=== PATIENT | male | born 1970 | race Caucasian/White ===

== ENCOUNTER 2017-05-12 08:52 | Inpatient (IN) | payer OTHER ==
[2017-05-12] MEDS ORDERED: Dexamethasone IV* 4 MG/ML 1 ML (4 MG) IV SLOW PU SCH (10:00)
[2017-05-12] MEDS ORDERED: Fosaprepitant IV* 150 MG in NS 0.9% 250 ML* 145 ML IVPB ONE (10:00)
[2017-05-12] MEDS ORDERED: Palonosetron* 0.25 MG in PREMIX* 0 ML IVPB ONE (10:30)
[2017-05-12] MEDS: OLANzapine TAB* 10 MG PO SCH (10:54)
[2017-05-12] MEDS: Enoxaparin(*) 40 MG/0.4 ML SYR SUBCUT SCH (11:45)
[2017-05-12] MEDS: MESNA IVPB SCH (12:06)
[2017-05-12] MEDS: DOXORUBICIN IVPB SCH (12:06)
[2017-05-12] MEDS: NS 0.9% IVPB SCH ×2 (12:06)
[2017-05-12] MEDS: DACARBAZINE IVPB SCH (12:06)
[2017-05-12] MEDS: IFOSFAMIDE IVPB SCH (12:06)
[2017-05-12] MEDS ORDERED: LORazepam INJ* 2 MG/ML 1 ML VIAL IV PUSH PRN (13:56)
[2017-05-12] MEDS: HYDROcodone/ACET. 7.5/325 LIQ* 15 ML UDC PO PRN (14:35)
[2017-05-12] MEDS: metFORMIN* 500 MG TAB PO SCH ×2 (14:37→17:50)
[2017-05-12] MEDS: glyBURIDE TAB* 5 MG PO SCH (17:44)
[2017-05-13] MEDS: metFORMIN* 500 MG TAB PO SCH ×2 (08:33→17:11)
[2017-05-13] MEDS: glyBURIDE TAB* 5 MG PO SCH ×2 (08:33→17:11)
[2017-05-13] MEDS: SitaGLIPtin (NF) 25 MG TAB PO SCH (08:33)
[2017-05-13] MEDS ORDERED: METFORMIN PO SCH (09:00)
[2017-05-13] MEDS ORDERED: SITAGLIPTIN PO SCH (09:00)
[2017-05-13] MEDS: Enoxaparin(*) 40 MG/0.4 ML SYR SUBCUT SCH (10:29)
[2017-05-13] MEDS: OLANzapine TAB* 10 MG PO SCH (10:29)
[2017-05-13] MEDS: Dexamethasone IV* 4 MG/ML 1 ML (4 MG) IV SLOW PU SCH (10:29)
[2017-05-13] MEDS: IFOSFAMIDE IVPB SCH (11:44)
[2017-05-13] MEDS: MESNA IVPB SCH (11:44)
[2017-05-13] MEDS: NS 0.9% IVPB SCH ×2 (11:44→11:45)
[2017-05-13] MEDS: DACARBAZINE IVPB SCH (11:45)
[2017-05-13] MEDS: DOXORUBICIN IVPB SCH (11:45)
[2017-05-13 14:30] LABS: Urine Appearance Clear; Urine Blood Negative (Negative); Urine Color Yellow; Urine Ketones 2+ (Negative); Urine Protein Negative (Negative); Urine Urobilinogen Negative (Negative)
[2017-05-13] MEDS: HYDROcodone/ACET. 7.5/325 LIQ* 15 ML UDC PO PRN (14:51)
--- NOTE | 2017-05-13 22:08 | HP ---
ADMISSION HISTORY AND PHYSICAL: DATE OF ADMISSION: 05/12/17 REASON FOR ADMISSION: Chemotherapy for high-grade left shoulder sarcoma. HISTORY OF PRESENT ILLNESS: Mr. Ward is a 47-year-old male with a history of poorly-controlled diabetes mellitus. He was found to have rapidly growing left scapular mass. A CT scan revealed a heterogeneous mass involving the muscles on both sides of the scapula with erosions. The body of the scapular measuring 13 x 7 x 10 cm with associated left axillary adenopathy. Biopsy of the axilla and scapular mass confirmed high-grade sarcoma, not otherwise specified at [facility]. He was seen initially by Dr. Dutta on 02/10/17 and was seen in followup on 02/26/17. At that time, there was question as to the exact cell type of the sarcoma. He does not have health insurance, is unwilling to start therapy until March because of his insurance issues. He was seen in second opinion at [facility] with recommendation for neoadjuvant radiation therapy to be followed by chemotherapy. He underwent a course of radiation therapy, which was completed on 04/16/17. He received a total of 25 treatments. He developed some skin changes and fatigue, but no other significant abnormalities other than esophagitis, which has essentially resolved. Repeat imaging was obtained following the radiation therapy. This revealed on 05/09/17, shoulder MRI with significant interval decrease in the volume of the primary sarcoma tumor. At that point, measuring 7.2 x 6.6 cm previously having measured 10.8 x 8.4 x 13. The axillary adenopathy had resolved. CT scan had also been obtained on 05/01/17 of the chest. This revealed interval resolution of the left scapular musculature, low-density mass with mild residual asymmetry. Left axillary lymph node was less than a centimeter, markedly decreased from before. A 3-mm nodule at the periphery of the right lung was stable and likely not involved. The patient presents at the time of the admission to the Medical Oncology office to discuss preplanned radiation therapy with . PAST MEDICAL HISTORY: Significant for chronic back pain, diabetes type 2, and nephrolithiasis. PAST SURGICAL HISTORY: No previous surgeries. MEDICATIONS: Include: 1. Glyburide 5 mg b.i.d. 2. Occasional hydrocodone with APAP 10/325 q.6 hours p.r.n. taking about 2 pills once or twice a day. 3. Ibuprofen p.r.n. 4. Janumet , suppose to take b.i.d., but is out and is having problems with insurance to obtain this. ALLERGIES: BEE STINGS, PENICILLIN, and SEA FOOD. FAMILY HISTORY: Mother from lung cancer. Father alive with cardiac issues. A sibling and 3 children alive and healthy. SOCIAL HISTORY: The patient quit smoking 21 years ago. Drinks occasionally. He is single. Lives with his significant other in [facility]. REVIEW OF SYSTEMS: Energy level has improved since finishing radiation therapy. Fatigue is no longer present. No significant shortness of breath, chest pain, or palpitations. No significant changes in bowel or bladder habits. Nocturia x2 to 3 per night. No other urinary symptoms. No significant arthritic or bony complaints. Skin changes over the left shoulder region are improving significantly and only slightly open at the present time. Neurologic Exam: Without significant deficits other than a tiny bit of neuropathy in the toes likely related to uncontrolled diabetes. Pain was limiting his sleep, but currently is sleeping much better. No other psychiatric issues. PHYSICAL EXAMINATION VITAL SIGNS: Blood pressure 147/83, pulse is 75, height 6 feet, weight 195 pounds, BMI of 26.4, and a BSA of 2.11. HEENT: PERRLA. EOMI. No erythema or exudate. No palpable cervical, supraclavicular, or axillary adenopathy. LUNGS: Clear. HEART: Regular rate and rhythm without murmurs, rubs, or gallops. ABDOMEN: Soft and nontender without masses or organomegaly. EXTREMITIES: No clubbing, cyanosis, or edema. BACK: No CVA or spinal tenderness. NEUROLOGIC: Without focal deficits. Slight redness and excoriation with significant postradiation therapy skin changes over the left shoulder. LABORATORY DATA: Recent laboratory studies include a CBC with a white count of 4200, hemoglobin 39, hematocrit 13.2, platelet count 256,000 with a normal differential. Electrolytes: Sodium 137, potassium 4.0, chloride 104, bicarb 29 , BUN 9, creatinine 0.65, glucose 151. LFTs essentially normal other than mildly elevated bilirubin at 1.5. IMPRESSION: 1. The patient is being admitted to the hospital for MAID chemotherapy. He will receive this over a total of 96 hours. He will receive premedications with Aloxi 0.25 mg on day 1 and on day 4. Decadron 12 mg per day intravenously. Olanzapine 10 mg daily. Compazine will be available 10 mg q.6 hours p.r.n. nausea and Ativan available at 0.5 mg IV push q.4 hours p.r.n. Chemotherapy regimen will consist of at a dose of 2500 mg per meter squared, total dose of 5250 mg daily x4. Ifosfamide will be given at a dose of 2500 mg per meter squared, total dose of 5250 mg daily x3. He will receive dacarbazine and Adriamycin in a mixed bag. The Adriamycin will be a total dose of 20 mg per meter squared or 42 mg total dose daily x3 and the dacarbazine 20 mg per meter squared total daily dose of again daily x3. 2. Diabetes mellitus. The patient will be kept on his glyburide at a dose of 5 mg b.i.d. In addition, he will receive the Januvia and metformin that would be a part of the Janumet if he was taking that on a regular basis. Blood sugars will be checked a.c. and h.s. and if over 250, consideration for addition treatment. I expect his blood sugars may be high related to the large dose of the Decadron he is receiving and the fact that his blood sugars have not been under good control recently without full dosing at home. He does not check his blood sugars regularly. [id number]/[facility] #: [id number] MTDD
[2017-05-13] MEDS: Prochlorperazine TAB* 10 MG PO PRN (22:11)
[2017-05-13] MEDS: Zolpidem TAB* 5 MG PO PRN (22:11)
[2017-05-14 07:45] LABS: EGFR Non-African American 139.7 (>60)
[2017-05-14] MEDS: glyBURIDE TAB* 5 MG PO SCH ×2 (08:38→17:38)
[2017-05-14] MEDS: SitaGLIPtin (NF) 25 MG TAB PO SCH (08:39)
[2017-05-14] MEDS: metFORMIN* 500 MG TAB PO SCH ×2 (08:39→17:38)
[2017-05-14] MEDS: Dexamethasone IV* 4 MG/ML 1 ML (4 MG) IV SLOW PU SCH (10:19)
[2017-05-14] MEDS: OLANzapine TAB* 10 MG PO SCH (10:19)
[2017-05-14] MEDS: Enoxaparin(*) 40 MG/0.4 ML SYR SUBCUT SCH (10:19)
[2017-05-14] MEDS: MESNA IVPB SCH (11:26)
[2017-05-14] MEDS: IFOSFAMIDE IVPB SCH (11:26)
[2017-05-14] MEDS: DOXORUBICIN IVPB SCH (11:26)
[2017-05-14] MEDS: DACARBAZINE IVPB SCH (11:26)
[2017-05-14] MEDS: NS 0.9% IVPB SCH ×2 (11:26)
[2017-05-14] MEDS: HYDROcodone/ACET. 7.5/325 LIQ* 15 ML UDC PO PRN (14:14)
[2017-05-14] MEDS: Prochlorperazine TAB* 10 MG PO PRN (19:54)
[2017-05-14] MEDS: Zolpidem TAB* 5 MG PO PRN (22:03)
[2017-05-15] MEDS: HYDROcodone/ACET. 7.5/325 LIQ* 15 ML UDC PO PRN ×2 (05:36→19:24)
[2017-05-15 06:04] LABS: EGFR Non-African American 147.9 (>60)
[2017-05-15] MEDS ORDERED: PREMIX* 0 ML ONE (08:31)
[2017-05-15] MEDS: SitaGLIPtin (NF) 25 MG TAB PO SCH (08:37)
[2017-05-15] MEDS: OLANzapine TAB* 10 MG PO SCH (08:37)
[2017-05-15] MEDS: metFORMIN* 500 MG TAB PO SCH ×2 (08:37→17:12)
[2017-05-15] MEDS: glyBURIDE TAB* 5 MG PO SCH ×2 (08:37→17:12)
[2017-05-15] MEDS ORDERED: Palonosetron* 0.25 MG in PREMIX* 0 ML IVPB ONE (09:00)
[2017-05-15] MEDS: Dexamethasone IV* 4 MG/ML 1 ML (4 MG) IV SLOW PU SCH (09:42)
[2017-05-15] MEDS: Enoxaparin(*) 40 MG/0.4 ML SYR SUBCUT SCH (09:43)
[2017-05-15] MEDS ORDERED: MESNA IVPB ONE (11:00)
[2017-05-15] MEDS ORDERED: NS 0.9% IVPB ONE (11:00)
[2017-05-15] MEDS ORDERED: Loperamide CAP* 2 MG PO PRN (15:55)
--- NOTE | 2017-05-15 15:57 | PN ---
Progress Note - Progress Note Date of Service: 05/15/17 SOAP: Subjective: []C1D3 Feels a little off but blames it on the metformin (as he normally has this in combination with stigaliptin). Had some diarrhea. No real nausea complaints. No SALVADOR or dizziness, denies any confusion. Aware of plan for neupogen at home and curious about inj. teaching. Medications: Hydrocodone Bitart/Acetaminophen (Nortab 7.5/325 Liq*) 30 ml PO Q4HR PRN PRN Reason: PAIN Stop: 05/16/17 23:59 Last Admin: 05/15/17 05:36 Dose: 30 ml Enoxaparin Sodium (Lovenox(*)) 40 mg SUBCUT Q24H [facility] Last Admin: 05/15/17 09:43 Dose: 40 mg Glyburide (Diabeta Tab*) 5 mg PO 0800,1700 [facility] Last Admin: 05/15/17 08:37 Dose: 5 mg Mesna 5,250 mg/ Sodium (Chloride) 1,000 mls @ 41.667 mls/hr IVPB ONCE ONE Stop: 05/16/17 10:59 Last Admin: 05/15/17 12:07 Dose: 41.667 mls/hr Lorazepam (Ativan Inj*) 0.5 mg IV PUSH Q4H PRN PRN Reason: ANXIETY Last Admin: 05/12/17 14:32 Dose: 0.5 mg Metformin HCl (Glucophage*) 500 mg PO BID WITH MEALS [facility] Last Admin: 05/15/17 08:37 Dose: 500 mg Prochlorperazine (Compazine Tab*) 10 mg PO Q6H PRN PRN Reason: NAUSEA Last Admin: 05/14/17 19:54 Dose: 10 mg Sitagliptin Phosphate (Januvia (Nf)) 50 mg PO DAILY [facility] Last Admin: 05/15/17 08:37 Dose: 50 mg Zolpidem Tartrate (Ambien Tab*) 5 mg PO BEDTIME PRN PRN Reason: INSOMNIA Last Admin: 05/14/17 22:03 Dose: 5 mg Objective: [] Vital Signs Temp Pulse Resp BP Pulse Ox 97.1 F 68 18 127/70 98 05/15/17 07:34 05/15/17 07:34 05/15/17 08:12 05/15/17 07:34 05/15/17 07:34 A&Ox3, EOMI, GODOY, neuro grossly non-focal HRR, S1S2, no murmur noted LS clear, resp. even and non-labored +BS, abd. soft and non-tender +PP=bilat., no edema PICC ZACARIAS benign Laboratory Results - last 24 hr 05/14/17 05/15/17 05/15/17 17:10 05:43 15:47 Sodium 140 Potassium 3.5 Chloride 107 Carbon Dioxide 28 Anion Gap 5 BUN 11 Creatinine 0.59 L Est GFR ( Amer) 190.2 Est GFR (Non-Af Amer) 147.9 BUN/Creatinine Ratio 18.6 Glucose 70 POC Glucose (mg/dL) 117 H 92 Calcium 10.4 H Assessment: []47 yo male with high-grade sarcoma of left shoulder NOS currently completing C1 of planned 3 MAID, appears to be tolerating well. I would expect him to be more constipated with chemo, though mesna may cause some diarrhea, and therefore it isn't unreasonable to consider the metformin is causing some GI discomfort. Plan: []1. Sarcoma NOS: Day 3 MAID, complete mesna for total 96 hrs as per orders. Plan for filgrastim 480 mcg subq D5-15, teaching today 2. Diarrhea: add loperamide PO PRN, mdd 8 tabs 3. DM II: elevated BGs while inpt. 2/2 steroids, expect to stabilize and will cont. to follow as outpatient Discharge home tomorrow
[2017-05-15] MEDS: Zolpidem TAB* 5 MG PO PRN (22:23)
[2017-05-16] MEDS: HYDROcodone/ACET. 7.5/325 LIQ* 15 ML UDC PO PRN (06:19)
[2017-05-16] MEDS: glyBURIDE TAB* 5 MG PO SCH (07:39)
[2017-05-16] MEDS: SitaGLIPtin (NF) 25 MG TAB PO SCH (07:39)
[2017-05-16] MEDS: metFORMIN* 500 MG TAB PO SCH (07:39)
--- NOTE | 2017-05-16 08:50 | PN ---
Progress Note - Progress Note Date of Service: 05/17/17 SOAP: See Note same date
--- NOTE | 2017-05-16 08:58 | PN ---
Progress Note - Progress Note Date of Service: 05/16/17 SOAP: Subjective: []Did well overnight. No nausea, some fatigue on chemotherapy. Has Neupogen in our office. Comapzine and Zorfran scripts sent in. Hydrocodone Bitart/Acetaminophen (Nortab 7.5/325 Liq*) 30 ml PO Q4HR PRN PRN Reason: PAIN Stop: 05/16/17 23:59 Last Admin: 05/16/17 06:19 Dose: 30 ml Enoxaparin Sodium (Lovenox(*)) 40 mg SUBCUT Q24H [facility] Last Admin: 05/15/17 09:43 Dose: 40 mg Glyburide (Diabeta Tab*) 5 mg PO 0800,1700 [facility] Last Admin: 05/16/17 07:39 Dose: 5 mg Mesna 5,250 mg/ Sodium (Chloride) 1,000 mls @ 41.667 mls/hr IVPB ONCE ONE Stop: 05/16/17 10:59 Last Admin: 05/15/17 12:07 Dose: 41.667 mls/hr Loperamide HCl (Imodium Cap*) 2 mg PO .SEE DIRECTIONS PRN PRN Reason: DIARRHEA Lorazepam (Ativan Inj*) 0.5 mg IV PUSH Q4H PRN PRN Reason: ANXIETY Last Admin: 05/12/17 14:32 Dose: 0.5 mg Metformin HCl (Glucophage*) 500 mg PO BID WITH MEALS [facility] Last Admin: 05/16/17 07:39 Dose: 500 mg Prochlorperazine (Compazine Tab*) 10 mg PO Q6H PRN PRN Reason: NAUSEA Last Admin: 05/14/17 19:54 Dose: 10 mg Sitagliptin Phosphate (Januvia (Nf)) 50 mg PO DAILY [facility] Last Admin: 05/16/17 07:39 Dose: 50 mg Zolpidem Tartrate (Ambien Tab*) 5 mg PO BEDTIME PRN PRN Reason: INSOMNIA Last Admin: 05/15/17 22:23 Dose: 5 mg Objective: Vital Signs Temp Pulse Resp BP Pulse Ox 97.5 F 82 16 136/69 99 05/16/17 07:25 05/16/17 07:25 05/16/17 07:54 05/16/17 07:25 05/16/17 07:25 A&Ox3, EOMI, GODOY, neuro grossly non-focal HRR, S1S2, no murmur noted CTA +BS, abd. soft and non-tender +PP=bilat., no edema PICC ZACARIAS Assessment: []47 yo male with high-grade sarcoma of left shoulder NOS currently completing C1 of planned 3 MAID, appears to be tolerating well. Plan: []1. Sarcoma NOS: Day 4 MAID, complete mesna for total 96 hrs as per orders. Plan for filgrastim 480 mcg subq D5-15 in clinic, anti-nausea medication at home. 2. Diarrhea: add loperamide PO PRN, mdd 8 tabs 3. DM II: elevated BGs while inpt. 2/2 steroids, expect to stabilize and will cont. to follow as outpatient 4. Follow up Dr. Dutta next week.
[2017-05-16] MEDS: Enoxaparin(*) 40 MG/0.4 ML SYR SUBCUT SCH (10:49)
[2017-05-16 11:45] VITALS: BP 125/76
--- NOTE | 2017-05-16 23:20 | DS ---
DISCHARGE SUMMARY: DATE OF ADMISSION: 05/13/17 DATE OF DISCHARGE: 05/15/17 DISCHARGE DIAGNOSES: 1. Soft tissue sarcoma. 2. MAID chemotherapy, day 4. HOSPITAL COURSE: Please see history and physical for details of his disease history and presentation from 05/13/17. He tolerated chemotherapy very well. He had no nausea, minimal side effects. He alvarez s had some diarrhea despite his antiemetics and has been started on some Imodium. No fever or chills , no mental status changes, no neuropathy. He will be discharged home today and follow up with Dr. Dutta next week. Plan is for 3 cycles of MAID chemotherapy followed by surgery. DISCHARGE MEDICATIONS: 1. Diabeta 5 mg daily. 2. Hydrocodone/acetaminophen 1 tab q.4 hours p.r.n. 3. Zofran 8 mg q.8 p.r.n. 4. Compazine 10 mg q.6 p.r.n. 5. Janumet XR one daily. 6. Imodium 2 mg p.r.n. Follow up next week. [id number]/[facility] #: [id number]
== END 2017-05-16 14:55 | disposition home or self-care (01) | DRG 693 ==
LOC: MED 09:16
PROVIDERS: ADMIT Internal Medicine Hematology & Oncology; ATTEND Internal Medicine Hematology & Oncology
DX: Z51.11 Encounter for antineoplastic chemotherapy (principal); C40.02 Malignant neoplasm of scapula and long bones of left upper limb; G89.29 Other chronic pain; M54.9 Dorsalgia, unspecified; T38.0X5A Adverse effect of glucocorticoids and synthetic analogues, initial encounter; Y92.239 Unspecified place in hospital as the place of occurrence of the external cause; N20.0 Calculus of kidney; R19.7 Diarrhea, unspecified; E11.65 Type 2 diabetes mellitus with hyperglycemia; Z79.84 Long term (current) use of oral hypoglycemic drugs; Z88.0 Allergy status to penicillin; Z91.030 Bee allergy status; Z91.013 Allergy to seafood; Z82.49 Family history of ischemic heart disease and other diseases of the circulatory system; Z80.1 Family history of malignant neoplasm of trachea, bronchus and lung; Z87.891 Personal history of nicotine dependence; Z92.3 Personal history of irradiation
CPT/HCPCS: 36415; 80048; 81003; 82947; 99223; 99232; 99238; A9270-GY; J1100; J1453; J1650; J2060; J2469; J9000; J9130; J9209; J9280; Q0164

== ENCOUNTER 2017-06-02 09:17 | Inpatient (IN) | payer OTHER ==
[2017-06-02] MEDS ORDERED: Ondansetron TAB* 4 MG PO PRN (09:35)
[2017-06-02] MEDS ORDERED: Prochlorperazine TAB* 10 MG PO PRN (09:35)
[2017-06-02] MEDS ORDERED: Loperamide CAP* 2 MG PO PRN (09:35)
[2017-06-02] MEDS ORDERED: Dexamethasone IV* 12 MG in PREMIX* 0 ML IVPB SCH (11:00)
[2017-06-02] MEDS ORDERED: Fosaprepitant IV* 150 MG in NS 0.9% 250 ML* 145 ML IVPB ONE (11:00)
[2017-06-02] MEDS ORDERED: Palonosetron* 0.25 MG in PREMIX* 0 ML IVPB ONE (11:00)
[2017-06-02] MEDS ORDERED: Dexamethasone IV* 4 MG/ML 1 ML (4 MG) ONE (11:29)
[2017-06-02] MEDS: Dexamethasone IV* 4 MG/ML 1 ML (4 MG) IV SLOW PU SCH (11:51)
[2017-06-02] MEDS: IFOSFAMIDE IVPB SCH (13:11)
[2017-06-02] MEDS: NS 0.9% IVPB SCH ×2 (13:11)
[2017-06-02] MEDS: MESNA IVPB SCH (13:11)
[2017-06-02] MEDS: DACARBAZINE IVPB SCH (13:11)
[2017-06-02] MEDS: DOXORUBICIN IVPB SCH (13:11)
[2017-06-02] MEDS: OLANzapine TAB* 10 MG PO SCH (13:21)
[2017-06-02] MEDS: Enoxaparin(*) 40 MG/0.4 ML SYR SUBCUT SCH (13:21)
[2017-06-02] MEDS: glyBURIDE TAB* 5 MG PO SCH (16:53)
[2017-06-03 06:22] LABS: EGFR Non-African American 134.6 (>60)
[2017-06-03] MEDS: glyBURIDE TAB* 5 MG PO SCH ×2 (09:25→17:54)
[2017-06-03] MEDS: SITAGLIP PO SCH (09:25)
[2017-06-03] MEDS: [UNRECOGNIZED DRUG - OTHER] PO SCH (09:25)
[2017-06-03] MEDS: Dexamethasone IV* 4 MG/ML 1 ML (4 MG) IV SLOW PU SCH (12:09)
[2017-06-03] MEDS: OLANzapine TAB* 10 MG PO SCH (12:09)
[2017-06-03] MEDS: Enoxaparin(*) 40 MG/0.4 ML SYR SUBCUT SCH (12:11)
[2017-06-03] MEDS: DOXORUBICIN IVPB SCH (12:50)
[2017-06-03] MEDS: NS 0.9% IVPB SCH ×2 (12:50)
[2017-06-03] MEDS: IFOSFAMIDE IVPB SCH (12:50)
[2017-06-03] MEDS: DACARBAZINE IVPB SCH (12:50)
[2017-06-03] MEDS: MESNA IVPB SCH (12:50)
[2017-06-03] MEDS: LORazepam TAB(*) 0.5 MG PO PRN ×2 (15:21→20:51)
[2017-06-03] MEDS: HYDROcodone/ACETAMIN 5-325 MG* 1 TAB PO PRN (20:50)
[2017-06-04 06:53] LABS: EGFR Non-African American 157.1 (>60)
[2017-06-04] MEDS: glyBURIDE TAB* 5 MG PO SCH ×2 (07:47→16:31)
[2017-06-04] MEDS: Enoxaparin(*) 40 MG/0.4 ML SYR SUBCUT SCH (07:47)
[2017-06-04] MEDS: SITAGLIP PO SCH (07:47)
[2017-06-04] MEDS: [UNRECOGNIZED DRUG - OTHER] PO SCH (07:47)
--- NOTE | 2017-06-04 09:55 | PN ---
Progress Note - Progress Note Date of Service: 06/04/17 SOAP: Subjective: [This is a 47 yo male with a high grade sarcoma of his L shoulder who is hospitalized for cycle 2 of MAID therapy. He is starting day 3 today. He reports that he has been tolerating it well thus far. No c/o n/v/d. No severe agitation or anxiety. No CP or SOB. No hematuria. No c/o neuropathy.] Objective: [ Hydrocodone Bitart/Acetaminophen (Melvin 5-325 Tab*) 2 tab PO Q4H PRN PRN Reason: PAIN Last Admin: 06/03/17 20:50 Dose: 2 tab Dexamethasone Sodium Phosphate (Decadron Iv*) 12 mg IV SLOW PU DAILY@1100 [facility] Stop: 06/05/17 11:01 Last Admin: 06/03/17 12:09 Dose: 12 mg Enoxaparin Sodium (Lovenox(*)) 40 mg SUBCUT Q24H [facility] Last Admin: 06/04/17 07:47 Dose: 40 mg Glyburide (Diabeta Tab*) 5 mg PO 0800,1700 [facility] Last Admin: 06/04/17 07:47 Dose: 5 mg Heparin Sodium (Porcine) (Heparin Flush Picc/Ml/Cvc(*)) 1 ml FLUSH 0600,1800 [facility] PRN Reason: Protocol Last Admin: 06/04/17 05:59 Dose: 1 ml Ifosfamide 5,250 mg/ Mesna 5, (250 mg/ Sodium Chloride) 1,000 mls @ 41.667 mls/ hr IVPB DAILY@1200 [facility] Stop: 06/05/17 11:59 Last Admin: 06/03/17 12:50 Dose: 41.667 mls/hr Doxorubicin HCl 42 mg/Dacarbazine 630 mg/ Sodium Chloride 1,000 mls @ 41.667 mls/hr IVPB DAILY@1200 [facility] Stop: 06/05/17 11:59 Last Admin: 06/03/17 12:50 Dose: 41.667 mls/hr Mesna 5,250 mg/ Sodium (Chloride) 1,000 mls @ 41.667 mls/hr IVPB ONCE ONE Stop: 06/06/17 10:59 Loperamide HCl (Imodium Cap*) 2 mg PO .SEE DIRECTIONS PRN PRN Reason: DIARRHEA Lorazepam (Ativan Tab(*)) 0.5 mg PO Q6H PRN PRN Reason: Anxiety/insomnia/nausea Last Admin: 06/03/17 20:51 Dose: 0.5 mg Olanzapine (Zyprexa Tab*) 10 mg PO DAILY@1100 [facility] Last Admin: 06/03/17 12:09 Dose: 10 mg Ondansetron HCl (Zofran Tab*) 4 mg PO Q6H PRN PRN Reason: NAUSEA Prochlorperazine (Compazine Tab*) 10 mg PO Q6H PRN PRN Reason: NAUSEA Sitagliptin Phosphate/Metformin HCl (Janumet Xr (Nr)) 1 tab PO DAILY [facility] Last Admin: 06/04/17 07:47 Dose: 1 tab Laboratory Results - last 24 hr 06/04/17 06:00 Sodium 138 Potassium 3.7 Chloride 108 Carbon Dioxide 28 Anion Gap 2 BUN 14 Creatinine 0.56 L Est GFR ( Amer) 202.0 Est GFR (Non-Af Amer) 157.1 BUN/Creatinine Ratio 25.0 H Glucose 107 H Calcium 9.6 Total Bilirubin 0.50 AST 9 L ALT 15 Alkaline Phosphatase 82 Total Protein 5.4 L Albumin 3.2 Globulin 2.2 Albumin/Globulin Ratio 1.5 Vital Signs Temp Pulse Resp BP Pulse Ox 97.5 F 81 16 136/75 99 06/04/17 07:22 06/04/17 07:22 06/04/17 07:22 06/04/17 07:22 06/04/17 07:22 Gen: Well appearing, in NAD HEENT: MMM, tobacco chew in place CV: RRR, no m/r/g Resp: lungs CTA Abd: soft, non TTP Ext: No edema Skin: No rash] Assessment: [47 yo male with high grade sarcoma admitted for C2 MAID.] Plan: [1. Sarcoma - Day 3/ C2 MAID, tolerating well 2. Tobacco use - not interested in quitting 3. DM - glucose well controlled, cont Janumet and glyburide 4. DVT prophylaxis - SQ Lovenox]
[2017-06-04] MEDS: OLANzapine TAB* 10 MG PO SCH (11:23)
[2017-06-04] MEDS: Dexamethasone IV* 4 MG/ML 1 ML (4 MG) IV SLOW PU SCH (11:24)
[2017-06-04] MEDS: NS 0.9% IVPB SCH ×2 (12:45)
[2017-06-04] MEDS: IFOSFAMIDE IVPB SCH (12:45)
[2017-06-04] MEDS: DOXORUBICIN IVPB SCH (12:45)
[2017-06-04] MEDS: DACARBAZINE IVPB SCH (12:45)
[2017-06-04] MEDS: MESNA IVPB SCH (12:45)
[2017-06-04] MEDS: LORazepam TAB(*) 0.5 MG PO PRN ×2 (15:16→22:12)
[2017-06-04] MEDS: HYDROcodone/ACETAMIN 5-325 MG* 1 TAB PO PRN ×2 (16:36→22:11)
[2017-06-05] MEDS: glyBURIDE TAB* 5 MG PO SCH ×2 (08:10→17:08)
[2017-06-05] MEDS: SITAGLIP PO SCH (08:11)
[2017-06-05] MEDS: Enoxaparin(*) 40 MG/0.4 ML SYR SUBCUT SCH (08:11)
[2017-06-05] MEDS: [UNRECOGNIZED DRUG - OTHER] PO SCH (08:11)
--- NOTE | 2017-06-05 09:35 | PN ---
Progress Note - Progress Note Date of Service: 06/05/17 SOAP: Subjective: [Day 4/4 MAID therapy. No acute concerns beyond fatigue] Objective: [ Laboratory Results - last 24 hr 06/04/17 06/05/17 16:34 08:12 POC Glucose (mg/dL) 256 H 100 Hydrocodone Bitart/Acetaminophen ([place] 5-325 Tab*) 2 tab PO Q4H PRN PRN Reason: PAIN Last Admin: 06/04/17 22:11 Dose: 2 tab Dexamethasone Sodium Phosphate (Decadron Iv*) 12 mg IV SLOW PU DAILY@1100 [facility] Stop: 06/05/17 11:01 Last Admin: 06/04/17 11:24 Dose: 12 mg Enoxaparin Sodium (Lovenox(*)) 40 mg SUBCUT Q24H [facility] Last Admin: 06/05/17 08:11 Dose: 40 mg Glyburide (Diabeta Tab*) 5 mg PO 0800,1700 [facility] Last Admin: 06/05/17 08:10 Dose: 5 mg Heparin Sodium (Porcine) (Heparin Flush Picc/Ml/Cvc(*)) 1 ml FLUSH 0600,1800 [facility] PRN Reason: Protocol Last Admin: 06/05/17 05:47 Dose: 1 ml Ifosfamide 5,250 mg/ Mesna 5, (250 mg/ Sodium Chloride) 1,000 mls @ 41.667 mls/ hr IVPB DAILY@1200 [facility] Stop: 06/05/17 11:59 Last Admin: 06/04/17 12:45 Dose: 41.667 mls/hr Doxorubicin HCl 42 mg/Dacarbazine 630 mg/ Sodium Chloride 1,000 mls @ 41.667 mls/hr IVPB DAILY@1200 [facility] Stop: 06/05/17 11:59 Last Admin: 06/04/17 12:45 Dose: 41.667 mls/hr Mesna 5,250 mg/ Sodium (Chloride) 1,000 mls @ 41.667 mls/hr IVPB ONCE ONE Stop: 06/06/17 10:59 Palonosetron 0.25 mg/ IV (Solution) 5 mls @ 150 mls/hr IVPB ONCE ONE Stop: 06/05/17 11:01 Loperamide HCl (Imodium Cap*) 2 mg PO .SEE DIRECTIONS PRN PRN Reason: DIARRHEA Lorazepam (Ativan Tab(*)) 0.5 mg PO Q6H PRN PRN Reason: Anxiety/insomnia/nausea Last Admin: 06/04/17 22:12 Dose: 0.5 mg Olanzapine (Zyprexa Tab*) 10 mg PO DAILY@1100 [facility] Last Admin: 06/04/17 11:23 Dose: 10 mg Ondansetron HCl (Zofran Tab*) 4 mg PO Q6H PRN PRN Reason: NAUSEA Prochlorperazine (Compazine Tab*) 10 mg PO Q6H PRN PRN Reason: NAUSEA Sitagliptin Phosphate/Metformin HCl (Janumet Xr (Nr)) 1 tab PO DAILY [facility] Last Admin: 06/05/17 08:11 Dose: 1 tab Vital Signs Temp Pulse Resp BP Pulse Ox 97.4 F 74 18 106/58 97 06/05/17 07:44 06/05/17 07:44 06/05/17 08:00 06/05/17 07:44 06/05/17 07:44 Gen: Well appearing, in NAD HEENT: MMM, tobacco chew in place CV: RRR, no m/r/g Resp: lungs CTA Abd: soft, non TTP Ext: No edema Skin: No rash] Assessment: [47 yo male with high grade sarcoma admitted for C2 MAID.] Plan: [1. Sarcoma - Day 06/25 C2 MAID, tolerating well 2. Tobacco use - not interested in quitting 3. DM - glucose well controlled, cont Janumet and glyburide 4. DVT prophylaxis - SQ Lovenox] Dispo: Infusion will be complete at ~noon tomorrow at which point he will be discharged home]
[2017-06-05] MEDS ORDERED: NS 0.9% IVPB ONE (11:00)
[2017-06-05] MEDS ORDERED: MESNA IVPB ONE (11:00)
[2017-06-05] MEDS ORDERED: Palonosetron* 0.25 MG in PREMIX* 0 ML IVPB ONE (11:00)
[2017-06-05] MEDS: OLANzapine TAB* 10 MG PO SCH (11:21)
[2017-06-05] MEDS: Dexamethasone IV* 4 MG/ML 1 ML (4 MG) IV SLOW PU SCH (12:39)
[2017-06-05] MEDS: LORazepam TAB(*) 0.5 MG PO PRN (19:07)
[2017-06-05] MEDS: HYDROcodone/ACETAMIN 5-325 MG* 1 TAB PO PRN (20:17)
[2017-06-06] MEDS: LORazepam TAB(*) 0.5 MG PO PRN (00:49)
[2017-06-06 08:02] VITALS: BP 121/73
[2017-06-06] MEDS: glyBURIDE TAB* 5 MG PO SCH (09:03)
[2017-06-06] MEDS: Enoxaparin(*) 40 MG/0.4 ML SYR SUBCUT SCH (09:04)
[2017-06-06] MEDS: [UNRECOGNIZED DRUG - OTHER] PO SCH (09:04)
[2017-06-06] MEDS: SITAGLIP PO SCH (09:04)
[2017-06-06] MEDS: OLANzapine TAB* 10 MG PO SCH (11:37)
--- NOTE | 2017-06-07 00:37 | DS ---
CC: Dr. Pito Armando * DISCHARGE SUMMARY: DATE OF ADMISSION: 06/02/17 DATE OF DISCHARGE: 06/06/17 PRIMARY CARE PROVIDER: Dr. Pito Armando. ATTENDING PHYSICIAN AND PRIMARY ONCOLOGIST: Dr. Elina Dutta.* (DICTATED BY RAPHAEL CARTER) DISCHARGING PROVIDER: RAPHAEL Carter PRIMARY DISCHARGE DIAGNOSIS: High-grade sarcoma of the left shoulder, admitted for inpatient chemotherapy - MAID regimen. SECONDARY DISCHARGE DIAGNOSES: 1. Tobacco use - the patient is not interested in quitting, continues to chew tobacco. 2. Noninsulin-dependent diabetes with good glycemic control. DISCHARGE MEDICATIONS: 1. Neupogen 480 mcg subcu daily to begin on 06/06/17, continue for 10 days. 2. Glyburide 5 mg p.o. with breakfast and dinner. 3. Hydrocodone/acetaminophen 7.5/325 one to two tablets every 4 hours as needed for pain with a maximum daily dose of 8 tablets. 3. Imodium 2 mg p.o. q.2 hours as needed for diarrhea. 4. Zofran 4 mg p.o. q.6 hours as needed for nausea. 5. Compazine 10 mg p.o. q.6 hours as needed for nausea. 6. Janumet extended release 1 tablet p.o. daily. HOSPITAL IMAGING: None. HOSPITAL COURSE: This is a 47-year-old gentleman with a high-grade sarcoma of the left shoulder completing neoadjuvant chemotherapy, who was admitted for inpatient MAID regimen. This is his second cycle. He tolerated the first without any significant complications. The patient's hospital stay was uneventful. His only complaint was fatigue. Minimal nausea. DISPOSITION AND FOLLOWUP PLAN: The patient is being discharged to home. He was given instructions to start Neupogen injections today, which will be day #5 of his cycle and continue for a total of 10 days. He has a followup scheduled with Dr. Dutta for the 06/16/17 at which point he will have a CBC and comprehensive metabolic panel completed. The patient was given instructions on antiemetic and analgesic medication use and asked to contact the oncology office with any questions or concerns. RAPHAEL CARTER [id number]/[facility] #: [id number] SAH[facility]
== END 2017-06-06 11:55 | disposition home or self-care (01) | DRG 693 ==
LOC: MED 10:11
PROVIDERS: ADMIT Internal Medicine Hematology & Oncology; ATTEND Internal Medicine Hematology & Oncology
PROC: 02HV33Z Insertion of Infusion Device into Superior Vena Cava, Percutaneous Approach (ICD-10-PCS; principal; 2017-06-02)
PROC: 3E04305 Introduction of Other Antineoplastic into Central Vein, Percutaneous Approach (ICD-10-PCS; 2017-06-02)
DX: Z51.11 Encounter for antineoplastic chemotherapy (principal); C40.01 Malignant neoplasm of scapula and long bones of right upper limb; G89.29 Other chronic pain; E11.9 Type 2 diabetes mellitus without complications; Z88.8 Allergy status to other drugs, medicaments and biological substances; Z91.030 Bee allergy status; Z88.0 Allergy status to penicillin; Z91.013 Allergy to seafood; Z87.442 Personal history of urinary calculi; Z72.89 Other problems related to lifestyle; Z80.1 Family history of malignant neoplasm of trachea, bronchus and lung; Z72.0 Tobacco use
CPT/HCPCS: 36415; 80053; 99222; 99232; 99239; A9270-GY; J1100; J1453; J1650; J2469; J9000; J9130; J9209; J9280

== ENCOUNTER 2017-06-23 09:37 | Inpatient (IN) | payer OTHER ==
[2017-06-23] MEDS ORDERED: LORazepam TAB(*) 0.5 MG PO PRN (10:30)
[2017-06-23] MEDS ORDERED: HYDROcodone/ACET. 7.5/325 LIQ* 15 ML UDC PO PRN (10:30)
[2017-06-23] MEDS ORDERED: Palonosetron* 0.25 MG in PREMIX* 0 ML IVPB ONE (12:00)
[2017-06-23] MEDS ORDERED: Dexamethasone IV* 12 MG in PREMIX* 0 ML IVPB SCH (12:00)
[2017-06-23] MEDS ORDERED: Fosaprepitant IV* 150 MG in NS 0.9% 250 ML* 145 ML IVPB ONE (12:30)
[2017-06-23] MEDS ORDERED: Dexamethasone IV* 12 MG in PREMIX* 0 ML IV SLOW PU SCH (12:33)
[2017-06-23] MEDS: Enoxaparin(*) 40 MG/0.4 ML SYR SUBCUT SCH (12:48)
[2017-06-23] MEDS: OLANzapine TAB* 10 MG PO SCH (12:48)
[2017-06-23] MEDS: Dexamethasone IV* 4 MG/ML 1 ML (4 MG) IV SLOW PU SCH (12:54)
[2017-06-23 13:34] LABS: Hematocrit 27 % (42-52); Hemoglobin 9.6 g/dl (14.0-18.0); Mean Corpuscular HGB Conc 35 g/dl (31-36); Mean Corpuscular Hemoglobin 30 pg (27-31); Mean Corpuscular Volume 86 fL (80-94); Platelet Count 273 10^3/ul (150-450); Red Blood Count 3.17 10^6/ul (4.0-5.4); Red Cell Distribution Width 17 % (10.5-15)
[2017-06-23 14:00] LABS: ABS Basophils 0 10^3/ul (0-0.2); ABS Eosinophils 0 10^3/ul (0-0.6); ABS Lymphocytes 0.6 10^3/ul (1.0-4.8); ABS Monocytes 0.7 10^3/ul (0-0.8); ABS Neutrophils 4.6 10^3/ul (1.5-7.7); ABS Nucleated RBC 0 10^3/ul; Nucleated Red Blood Cells % 0.1
[2017-06-23 14:03] LABS: Eosinophil % 0.5 % (0-6); Lymphocyte % 10.1 % (25-47)
--- NOTE | 2017-06-23 16:14 | RAD ---
INDICATION: PICC placement. COMPARISON: Comparison is made with a prior outside chest x-ray study from February 05, 2017. TECHNIQUE: A portable view of the chest was obtained. FINDINGS: Cardiac and mediastinal contours appear to be within normal limits. There is a PICC catheter entering on the right side. The catheter tip projects approximately at the junction of the right atrium and superior vena cava. The lungs are underinflated and clear. No pleural effusion or pneumothorax is seen. IMPRESSION: STATUS POST PICC PLACEMENT, NO EVIDENCE FOR ACUTE FINDING.
[2017-06-23] MEDS: IFOSFAMIDE IVPB SCH (17:18)
[2017-06-23] MEDS: NS 0.9% IVPB SCH ×2 (17:18)
[2017-06-23] MEDS: DOXORUBICIN IVPB SCH (17:18)
[2017-06-23] MEDS: MESNA IVPB SCH (17:18)
[2017-06-23] MEDS: DACARBAZINE IVPB SCH (17:18)
[2017-06-23] MEDS: metFORMIN* 500 MG TAB PO SCH ×2 (17:34→17:36)
[2017-06-23] MEDS: glyBURIDE TAB* 5 MG PO SCH (17:34)
[2017-06-24] MEDS ORDERED: SITAGLIP PO SCH (09:00)
[2017-06-24] MEDS ORDERED: [UNRECOGNIZED DRUG - OTHER] PO SCH (09:00)
[2017-06-24] MEDS: METFORM PO SCH (09:04)
[2017-06-24] MEDS: SITAGLIP PO SCH (09:04)
[2017-06-24] MEDS: glyBURIDE TAB* 5 MG PO SCH ×2 (09:04→16:45)
--- NOTE | 2017-06-24 09:13 | PN ---
Progress Note - Progress Note Date of Service: 06/24/17 SOAP: Subjective: [Admission for C3 MAID. Patient reports tolerating treatment well. Little to no nausea. Appetite is good. Chronic, stable back pain. No diarrhea or constipation. ] Objective: [Acetaminophen (Tylenol Tab*) 650 mg PO Q4H PRN PRN Reason: FEVER/PAIN Hydrocodone Bitart/Acetaminophen (Nortab 7.5/325 Liq*) 15 ml PO Q4H PRN PRN Reason: PAIN Dexamethasone Sodium Phosphate (Decadron Iv*) 12 mg IV SLOW PU DAILY@1200 [facility] Last Admin: 06/23/17 12:54 Dose: 12 mg Enoxaparin Sodium (Lovenox(*)) 40 mg SUBCUT Q24H [facility] Last Admin: 06/23/17 12:48 Dose: 40 mg Glyburide (Diabeta Tab*) 5 mg PO 0800,1700 [facility] Last Admin: 06/24/17 09:04 Dose: 5 mg Heparin Sodium (Porcine) (Heparin Flush Picc/Ml/Cvc(*)) 1 - 3 ml FLUSH 0600, 1800 [facility] PRN Reason: Protocol Last Admin: 06/24/17 05:34 Dose: 1 ml Palonosetron 0.25 mg/ IV (Solution) 5 mls @ 150 mls/hr IVPB ONCE ONE Stop: 06/26/17 12:01 Ifosfamide 5,250 mg/ Mesna 5, (250 mg/ Sodium Chloride) 1,000 mls @ 41.667 mls/ hr IVPB DAILY@1300 [facility] Stop: 06/26/17 12:59 Last Admin: 06/23/17 17:18 Dose: 41.667 mls/hr Doxorubicin HCl 42 mg/Dacarbazine 630 mg/ Sodium Chloride 1,000 mls @ 41.667 mls/hr IVPB DAILY@1300 [facility] Stop: 06/26/17 12:59 Last Admin: 06/23/17 17:18 Dose: 41.667 mls/hr Mesna 5,250 mg/ Sodium (Chloride) 1,000 mls @ 41.667 mls/hr IVPB ONCE ONE Stop: 06/27/17 12:59 Lorazepam (Ativan Tab(*)) 0.5 mg PO TID PRN PRN Reason: Anxiety/nausea Olanzapine (Zyprexa Tab*) 10 mg PO DAILY@1200 [facility] Last Admin: 06/23/17 12:48 Dose: 10 mg Sitagliptin Phosphate/Metformin HCl (Janumet (Nr)) 1 tab PO DAILY [facility] Last Admin: 06/24/17 09:04 Dose: 1 tab Laboratory Results - last 24 hr 06/23/17 06/23/17 13:14 13:14 WBC 6.0 RBC 3.17 L Hgb 9.6 L Hct 27 L MCV 86 MCH 30 MCHC 35 RDW 17 H Plt Count 273 MPV 7.0 L Neut % (Auto) 77.1 Lymph % (Auto) 10.1 L [place] % (Auto) 11.8 H Eos % (Auto) 0.5 Baso % (Auto) 0.5 Absolute Neuts (auto) 4.6 Absolute Lymphs (auto) 0.6 L Absolute Monos (auto) 0.7 Absolute Eos (auto) 0 Absolute Basos (auto) 0 Absolute Nucleated RBC 0 Nucleated RBC % 0.1 Sodium 140 Potassium 3.6 Chloride 105 Carbon Dioxide 30 Anion Gap 5 BUN 8 Creatinine 0.60 L Est GFR ( Amer) 186.5 Est GFR (Non-Af Amer) 145.0 BUN/Creatinine Ratio 13.3 Glucose 60 L Calcium 9.9 Total Bilirubin 0.80 AST 14 ALT 13 Alkaline Phosphatase 89 Total Protein 6.1 L Albumin 3.6 Globulin 2.5 Albumin/Globulin Ratio 1.4 Vital Signs: Temp Pulse Resp BP Pulse Ox 97.4 F 66 14 98/54 96 06/24/17 03:43 06/24/17 03:43 06/24/17 07:11 06/24/17 03:43 06/24/17 03:43 Exam: Gen: Well appearing, up walking around HEENT: MMM, no mouth sores CV: RRR, m/r/g Resp: lungs CTA Abd: soft nonTTP Ext: No edema Skin: No rash Psych: Alert and oriented, normal affect] Assessment: [47 yo male with DM and high grade sarcoma receiving neoadjuvant chemotherapy. Admitted for C3 MAID with plans for follow up imaging and proceeding to surgery. ] Plan: [1. Sarcoma - day 2 C3 MAID, tolerating well 2. DM - continue oral hypoglycemic agents, appropriate glycemic control 3. DVT prophylaxis - SQ Lovenox Dispo: anticipate dc home Friday]
[2017-06-24] MEDS: OLANzapine TAB* 10 MG PO SCH (11:43)
[2017-06-24] MEDS: Dexamethasone IV* 4 MG/ML 1 ML (4 MG) IV SLOW PU SCH (11:43)
[2017-06-24] MEDS: Enoxaparin(*) 40 MG/0.4 ML SYR SUBCUT SCH (11:43)
[2017-06-24] MEDS: IFOSFAMIDE IVPB SCH (13:12)
[2017-06-24] MEDS: MESNA IVPB SCH (13:12)
[2017-06-24] MEDS: NS 0.9% IVPB SCH ×2 (13:12→13:13)
[2017-06-24] MEDS: DACARBAZINE IVPB SCH (13:13)
[2017-06-24] MEDS: DOXORUBICIN IVPB SCH (13:13)
[2017-06-24] MEDS: LORazepam TAB(*) 0.5 MG PO PRN (16:42)
[2017-06-24] MEDS: Acetaminophen TAB* 325 MG PO PRN (20:07)
[2017-06-24] MEDS: HYDROcodone/ACETAMIN 5-325 MG* 1 TAB PO PRN (20:08)
[2017-06-25] MEDS: SITAGLIP PO SCH (09:50)
[2017-06-25] MEDS: METFORM PO SCH (09:50)
[2017-06-25] MEDS: glyBURIDE TAB* 5 MG PO SCH ×2 (09:51→17:21)
--- NOTE | 2017-06-25 10:07 | PN ---
Progress Note - Progress Note Date of Service: 06/25/17 SOAP: Subjective: recognizes that he is more irritable when on chemotherapy. denies headaches, nausea or vomiting. Objective: Vital Signs Temp Pulse Resp BP Pulse Ox 97.7 F 66 16 104/49 97 06/25/17 07:45 06/25/17 07:45 06/25/17 08:00 06/25/17 07:45 06/25/17 07:45 perr eomi op moist no thrush cta bl s1 s2 nl soft nt +bs no le edema RUE PICC clean and intact A+O x 3, nonfocal neurological exam Acetaminophen (Tylenol Tab*) 650 mg PO Q4H PRN PRN Reason: FEVER/PAIN Last Admin: 06/24/17 20:07 Dose: 325 mg Hydrocodone Bitart/Acetaminophen (Nortab 7.5/325 Liq*) 15 ml PO Q4H PRN PRN Reason: PAIN Hydrocodone Bitart/Acetaminophen ([place] 5-325 Tab*) 1 tab PO Q4H PRN PRN Reason: PAIN Last Admin: 06/24/17 20:08 Dose: 1 tab Dexamethasone Sodium Phosphate (Decadron Iv*) 12 mg IV SLOW PU DAILY@1200 [facility]AN[facility] Last Admin: 06/24/17 11:43 Dose: 12 mg Enoxaparin Sodium (Lovenox(*)) 40 mg SUBCUT Q24H [facility] Last Admin: 06/24/17 11:43 Dose: 40 mg Glyburide (Diabeta Tab*) 5 mg PO 0800,1700 JAN[facility] Last Admin: 06/25/17 09:51 Dose: 5 mg Heparin Sodium (Porcine) (Heparin Flush Picc/Ml/Cvc(*)) 1 - 3 ml FLUSH 0600, 1800 JANIA PRN Reason: Protocol Last Admin: 06/25/17 05:25 Dose: Not Given Palonosetron 0.25 mg/ IV (Solution) 5 mls @ 150 mls/hr IVPB ONCE ONE Stop: 06/26/17 12:01 Ifosfamide 5,250 mg/ Mesna 5, (250 mg/ Sodium Chloride) 1,000 mls @ 41.667 mls/ hr IVPB DAILY@1300 JAN[facility] Stop: 06/26/17 12:59 Last Admin: 06/24/17 13:12 Dose: 41.667 mls/hr Doxorubicin HCl 42 mg/Dacarbazine 630 mg/ Sodium Chloride 1,000 mls @ 41.667 mls/hr IVPB DAILY@1300 JAN[facility] Stop: 06/26/17 12:59 Last Admin: 06/24/17 13:13 Dose: 41.667 mls/hr Mesna 5,250 mg/ Sodium (Chloride) 1,000 mls @ 41.667 mls/hr IVPB ONCE ONE Stop: 06/27/17 12:59 Lorazepam (Ativan Tab(*)) 0.5 mg PO TID PRN PRN Reason: Anxiety/nausea Last Admin: 06/24/17 16:42 Dose: 0.5 mg Olanzapine (Zyprexa Tab*) 10 mg PO DAILY@1200 JANIA Last Admin: 06/24/17 11:43 Dose: 10 mg Sitagliptin Phosphate/Metformin HCl (Janumet (Nr)) 1 tab PO DAILY [facility] Last Admin: 06/25/17 09:50 Dose: 1 tab Assessment: 47 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 . Plan: -cont chemo -cont prn antiemetics -cont diabetes meds -lovenox sc dvt prophylaxis
[2017-06-25] MEDS: Enoxaparin(*) 40 MG/0.4 ML SYR SUBCUT SCH (11:49)
[2017-06-25] MEDS: Dexamethasone IV* 4 MG/ML 1 ML (4 MG) IV SLOW PU SCH (11:49)
[2017-06-25] MEDS: OLANzapine TAB* 10 MG PO SCH (11:49)
[2017-06-25] MEDS: IFOSFAMIDE IVPB SCH (12:54)
[2017-06-25] MEDS: MESNA IVPB SCH (12:54)
[2017-06-25] MEDS: DOXORUBICIN IVPB SCH (12:54)
[2017-06-25] MEDS: DACARBAZINE IVPB SCH (12:54)
[2017-06-25] MEDS: NS 0.9% IVPB SCH ×2 (12:54)
[2017-06-25] MEDS: LORazepam TAB(*) 0.5 MG PO PRN (19:19)
[2017-06-25] MEDS: Acetaminophen TAB* 325 MG PO PRN (20:48)
[2017-06-25] MEDS: HYDROcodone/ACETAMIN 5-325 MG* 1 TAB PO PRN (20:49)
[2017-06-26] MEDS: glyBURIDE TAB* 5 MG PO SCH ×2 (08:56→16:14)
--- NOTE | 2017-06-26 08:59 | PN ---
Progress Note - Progress Note Date of Service: 06/26/17 SOAP: Subjective: sleeping on my arrival. denies any complaints. feels less irritable today. no headaches or vision changes Objective: Vital Signs Temp Pulse Resp BP Pulse Ox 97.3 F 66 18 102/49 98 06/26/17 03:55 06/26/17 03:55 06/26/17 03:55 06/26/17 03:55 06/26/17 03:55 perr eomi op moist cta bl s1 s2 nl soft nt +bs no le edema clean picc A+O x 3, nonfocal neuro exam Acetaminophen (Tylenol Tab*) 650 mg PO Q4H PRN PRN Reason: FEVER/PAIN Last Admin: 06/25/17 20:48 Dose: 650 mg Hydrocodone Bitart/Acetaminophen (Nortab 7.5/325 Liq*) 15 ml PO Q4H PRN PRN Reason: PAIN Hydrocodone Bitart/Acetaminophen ([place] 5-325 Tab*) 1 tab PO Q4H PRN PRN Reason: PAIN Last Admin: 06/25/17 20:49 Dose: 1 tab Dexamethasone Sodium Phosphate (Decadron Iv*) 12 mg IV SLOW PU DAILY@1200 [facility] Last Admin: 06/25/17 11:49 Dose: 12 mg Enoxaparin Sodium (Lovenox(*)) 40 mg SUBCUT Q24H [facility] Last Admin: 06/25/17 11:49 Dose: 40 mg Glyburide (Diabeta Tab*) 5 mg PO 0800,1700 [facility] Last Admin: 06/25/17 17:21 Dose: 5 mg Heparin Sodium (Porcine) (Heparin Flush Picc/Ml/Cvc(*)) 1 - 3 ml FLUSH 0600, 1800 JANIA PRN Reason: Protocol Last Admin: 06/26/17 06:08 Dose: Not Given Palonosetron 0.25 mg/ IV (Solution) 5 mls @ 150 mls/hr IVPB ONCE ONE Stop: 06/26/17 12:01 Ifosfamide 5,250 mg/ Mesna 5, (250 mg/ Sodium Chloride) 1,000 mls @ 41.667 mls/ hr IVPB DAILY@1300 [facility] Stop: 06/26/17 12:59 Last Admin: 06/25/17 12:54 Dose: 41.667 mls/hr Doxorubicin HCl 42 mg/Dacarbazine 630 mg/ Sodium Chloride 1,000 mls @ 41.667 mls/hr IVPB DAILY@1300 [facility] Stop: 06/26/17 12:59 Last Admin: 06/25/17 12:54 Dose: 41.667 mls/hr Ifosfamide 840 mg/ Mesna 840 (mg/ Sodium Chloride) 275.2 mls @ 68.8 mls/hr IVPB ONCE ONE Stop: 06/26/17 15:59 Doxorubicin HCl 6.7 mg/Dacarbazine 100 mg/ Sodium Chloride 263.35 mls @ 65.838 mls/hr IVPB ONCE ONE Stop: 06/26/17 15:59 Mesna 5,250 mg/ Sodium (Chloride) 1,000 mls @ 41.667 mls/hr IVPB ONCE ONE Stop: 06/27/17 15:59 Lorazepam (Ativan Tab(*)) 0.5 mg PO TID PRN PRN Reason: Anxiety/nausea Last Admin: 06/25/17 19:19 Dose: 0.5 mg Olanzapine (Zyprexa Tab*) 10 mg PO DAILY@1200 [facility] Last Admin: 06/25/17 11:49 Dose: 10 mg Sitagliptin Phosphate/Metformin HCl (Janumet (Nr)) 1 tab PO DAILY [facility] Last Admin: 06/25/17 09:50 Dose: 1 tab Assessment: 47 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 Plan: -cont chemo -cont prn antiemetics -cont diabetes meds -lovenox sc dvt prophylaxis
[2017-06-26] MEDS: SITAGLIP PO SCH (09:24)
[2017-06-26] MEDS: METFORM PO SCH (09:24)
[2017-06-26] MEDS: Enoxaparin(*) 40 MG/0.4 ML SYR SUBCUT SCH (11:29)
[2017-06-26] MEDS: Dexamethasone IV* 4 MG/ML 1 ML (4 MG) IV SLOW PU SCH (11:46)
[2017-06-26] MEDS: OLANzapine TAB* 10 MG PO SCH (11:46)
[2017-06-26] MEDS ORDERED: DOXORUBICIN IVPB ONE (12:00)
[2017-06-26] MEDS ORDERED: NS 0.9% IVPB ONE ×4 (12:00→16:00)
[2017-06-26] MEDS ORDERED: IFOSFAMIDE IVPB ONE (12:00)
[2017-06-26] MEDS ORDERED: Palonosetron* 0.25 MG in PREMIX* 0 ML IVPB ONE (12:00)
[2017-06-26] MEDS ORDERED: MESNA IVPB ONE ×3 (12:00→16:00)
[2017-06-26] MEDS ORDERED: DACARBAZINE IVPB ONE (12:00)
[2017-06-26] MEDS: LORazepam TAB(*) 0.5 MG PO PRN ×2 (12:07→18:57)
[2017-06-26] MEDS: HYDROcodone/ACETAMIN 5-325 MG* 1 TAB PO PRN (20:22)
[2017-06-26] MEDS: Acetaminophen TAB* 325 MG PO PRN (21:06)
[2017-06-27] MEDS: glyBURIDE TAB* 5 MG PO SCH (08:27)
[2017-06-27] MEDS: METFORM PO SCH (08:27)
[2017-06-27] MEDS: SITAGLIP PO SCH (08:27)
[2017-06-27] MEDS: LORazepam TAB(*) 0.5 MG PO PRN ×2 (08:29→12:29)
[2017-06-27] MEDS: Enoxaparin(*) 40 MG/0.4 ML SYR SUBCUT SCH (12:22)
[2017-06-27] MEDS: OLANzapine TAB* 10 MG PO SCH (12:24)
[2017-06-27] MEDS: Dexamethasone IV* 4 MG/ML 1 ML (4 MG) IV SLOW PU SCH (12:24)
[2017-06-27 13:00] VITALS: BP 133/68
--- NOTE | 2017-06-27 16:48 | DS ---
CC: Dr. Pito Armando * DISCHARGE SUMMARY: DATE OF ADMISSION: 06/23/17 DATE OF DISCHARGE: 06/27/17 PRIMARY ONCOLOGIST: Dr. Elina Dutta PRIMARY CARE PROVIDER: Dr. Pito Armando. ATTENDING PHYSICIAN: Dr. 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 SECONDARY DISCHARGE DIAGNOSES: 1. Rkv-vhkoyxd-[id number] diabetes - good glycemic control. 2. Continued tobacco abuse in the form of chew - not interested in quitting. DISCHARGE MEDICATIONS: 1. Glyburide 5 mg p.o. twice daily with breakfast and dinner. 2. Hydrocodone/acetaminophen 7.5/325 1 tablet p.o. every 4 hours as needed for pain. 3. Lorazepam 0.5 mg p.o. t.i.d. as needed for nausea and anxiety. 4. Zofran 4 mg p.o. q.6 hours as needed for nausea. 5. Compazine 10 mg p.o. q.6 hours as needed for nausea. 6. Janumet extended release 1 tablet p.o. daily. 7. Neupogen subcu daily cycle days 6 through 12. Medication changes: None. HOSPITAL COURSE: This is a 47-year-old gentleman with a high-grade sarcoma over the left shoulder who was admitted for cycle 3 of neoadjuvant chemotherapy with ifosfamide, Mesna, Adriamycin and dexamethasone. He has tolerated his first 2 cycles well. There were no complications during this hospitalization. He had limited nausea that was easily controlled. The patient has plans to proceed to surgery after this cycle of chemotherapy. He has imaging scheduled for next week with a followup with Dr. Dutta to follow. His surgery will be performed at [facility] with a tentative appointment for either 07/11/17 or . RAPHAEL CARTER [id number]/[facility] #: [id number] MTDD
== END 2017-06-27 14:45 | disposition home or self-care (01) | DRG 693 ==
LOC: MED 11:30
PROVIDERS: ADMIT Internal Medicine Hematology & Oncology; ATTEND Internal Medicine Hematology & Oncology
DX: Z51.11 Encounter for antineoplastic chemotherapy (principal); C41.9 Malignant neoplasm of bone and articular cartilage, unspecified; E11.40 Type 2 diabetes mellitus with diabetic neuropathy, unspecified; Z91.030 Bee allergy status; Z88.0 Allergy status to penicillin; Z91.013 Allergy to seafood; G89.29 Other chronic pain; M54.9 Dorsalgia, unspecified; Z87.442 Personal history of urinary calculi; Z72.0 Tobacco use
CPT/HCPCS: 36415; 71045; 80053; 85025; 99222; 99232; 99239; A9270-GY; J1100; J1453; J1650; J2469; J9000; J9130; J9208; J9209; J9280

== ENCOUNTER 2017-07-14 11:07 | Inpatient (IN) | payer OTHER ==
[2017-07-14] MEDS: DOXORUBICIN IVPB SCH (01:35)
[2017-07-14] MEDS: DACARBAZINE IVPB SCH (01:35)
[2017-07-14] MEDS: NS 0.9% IVPB SCH ×2 (01:35→13:44)
[~2017-07-14 11:07] MED LIST: Artificial Tears* 15 ML BTL BOTH EYES PRN
[2017-07-14] MEDS: Enoxaparin(*) 40 MG/0.4 ML SYR SUBCUT SCH (11:59)
[2017-07-14] MEDS ORDERED: Palonosetron* 0.25 MG in PREMIX* 0 ML IVPB ONE (12:00)
[2017-07-14] MEDS: OLANzapine TAB* 10 MG PO SCH (12:23)
[2017-07-14] MEDS: Dexamethasone IV* 4 MG/ML 1 ML (4 MG) IV SLOW PU SCH (12:23)
[2017-07-14] MEDS: KCL 10 MEQ/50 ML IVPREMIX* 10 MEQ/50 ML BAG IV SCH ×2 (12:24→14:34)
[2017-07-14] MEDS ORDERED: Fosaprepitant IV* 150 MG in NS 0.9% 250 ML* 145 ML IVPB ONE (12:30)
[2017-07-14] MEDS: MESNA IVPB SCH (13:44)
[2017-07-14] MEDS: IFOSFAMIDE IVPB SCH (13:44)
[2017-07-14] MEDS: SITAGLIP PO SCH (20:59)
[2017-07-14] MEDS: METFORM PO SCH (20:59)
[2017-07-15 06:11] LABS: Hematocrit 22 % (42-52); Hemoglobin 7.6 g/dl (14.0-18.0); Mean Corpuscular HGB Conc 35 g/dl (31-36); Mean Corpuscular Hemoglobin 32 pg (27-31); Mean Corpuscular Volume 91 fL (80-94); Mean Platelet Volume 7.3 um3 (7.4-10.4); Platelet Count 311 10^3/ul (150-450); Red Blood Count 2.41 10^6/ul (4.0-5.4); Red Cell Distribution Width 20 % (10.5-15); White Blood Count 6.9 10^3/ul (3.5-10.8)
[2017-07-15 06:27] LABS: EGFR Non-African American 129.9 (>60)
[2017-07-15 07:24] LABS: ABS Basophils 0 10^3/ul (0-0.2); ABS Eosinophils 0 10^3/ul (0-0.6); ABS Lymphocytes 0.3 10^3/ul (1.0-4.8); ABS Monocytes 0.3 10^3/ul (0-0.8); ABS Neutrophils 6.3 10^3/ul (1.5-7.7); ABS Nucleated RBC 0 10^3/ul; Eosinophil % 0 % (0-6); Lymphocyte % 4.2 % (25-47); Nucleated Red Blood Cells % 0.1
[2017-07-15] MEDS: METFORM PO SCH (08:55)
[2017-07-15] MEDS: SITAGLIP PO SCH (08:55)
[2017-07-15] MEDS: Enoxaparin(*) 40 MG/0.4 ML SYR SUBCUT SCH (08:55)
[2017-07-15] MEDS ORDERED: HYDROcodone/ACET. 7.5/325 LIQ* 15 ML UDC PO PRN (10:52)
[2017-07-15] MEDS ORDERED: LORazepam TAB(*) 0.5 MG PO PRN (10:52)
--- NOTE | 2017-07-15 10:58 | PN ---
Progress Note - Progress Note Date of Service: 07/15/17 SOAP: Subjective: [C4D2 MAID. He reports that he is doing ok. Frustrated with being hospitalized , but no specific complaints. No n/v/d or constipation. Appetite ok.] Objective: [ Dexamethasone Sodium Phosphate (Decadron Iv*) 12 mg IV SLOW PU DAILY@1230 [facility] Stop: 07/17/17 12:31 Last Admin: 07/14/17 12:23 Dose: 12 mg Enoxaparin Sodium (Lovenox(*)) 40 mg SUBCUT Q24H [facility] Last Admin: 07/15/17 08:55 Dose: 40 mg Glyburide (Diabeta Tab*) 5 mg PO 0800,1700 [facility] Ifosfamide 5,250 mg/ Mesna 5, (250 mg/ Sodium Chloride) 1,000 mls @ 41.667 mls/ hr IVPB Q24H [facility] Stop: 07/17/17 12:59 Last Admin: 07/14/17 13:44 Dose: 41.667 mls/hr Doxorubicin HCl 42 mg/Dacarbazine 630 mg/ Sodium Chloride 1,000 mls @ 41.667 mls/hr IVPB Q24H [facility] Stop: 07/17/17 12:59 Last Admin: 07/14/17 01:35 Dose: 41.667 mls/hr Mesna 5,250 mg/ Sodium (Chloride) 1,000 mls @ 41.667 mls/hr IVPB ONCE ONE Stop: 07/18/17 12:59 Lorazepam (Ativan Inj*) 0.5 mg IV PUSH Q4H PRN PRN Reason: Anxiety/nausea Non-Formulary Medication (Hydrocodone/Acetaminophen [[place] 7.5-325 Tablet]) 1 tab PO Q4HR PRN PRN Reason: PAIN Olanzapine (Zyprexa Tab*) 10 mg PO DAILY@1230 [facility] Stop: 07/17/17 12:31 Last Admin: 07/14/17 12:23 Dose: 10 mg Polyvinyl Alcohol (Polyvinyl Alcohol 1.4% Opth*) 1 drop BOTH EYES Q2H PRN PRN Reason: DRY EYE Sitagliptin Phosphate/Metformin HCl (Janumet (Nr)) 1 tab PO DAILY [facility] Laboratory Results - last 24 hr 07/14/17 07/15/17 07/15/17 11:48 05:50 05:50 WBC 6.9 RBC 2.41 L Hgb 7.6 L Hct 22 L MCV 91 MCH 32 H MCHC 35 RDW 20 H Plt Count 311 MPV 7.3 L Neut % (Auto) 91.0 H Lymph % (Auto) 4.2 L [place] % (Auto) 4.7 Eos % (Auto) 0 Baso % (Auto) 0.1 Absolute Neuts (auto) 6.3 Absolute Lymphs (auto) 0.3 L Absolute Monos (auto) 0.3 Absolute Eos (auto) 0 Absolute Basos (auto) 0 Absolute Nucleated RBC 0 Nucleated RBC % 0.1 Sodium 144 Potassium 3.7 Chloride 110 Carbon Dioxide 28 Anion Gap 6 BUN 14 Creatinine 0.66 L Est GFR ( Amer) 167.1 Est GFR (Non-Af Amer) 129.9 BUN/Creatinine Ratio 21.2 H Glucose 140 H POC Glucose (mg/dL) 125 H Calcium 9.4 Total Bilirubin 0.70 AST 9 L ALT 11 Alkaline Phosphatase 76 Total Protein 5.6 L Albumin 3.3 Globulin 2.3 Albumin/Globulin Ratio 1.4 Vital Signs: Temp Pulse Resp BP Pulse Ox 97.8 F 71 18 93/50 95 07/15/17 07:41 07/15/17 07:41 07/15/17 08:00 07/15/17 07:41 07/15/17 07:41 Exam: Gen: 47 yo male in NAD, somewhat pale and lethargic appearing HEENT: MMM CV: RRR Resp: lungs CTA Abd: soft nonTTP Ext: no edema Psych: alert, appropriate Skin: no rashes] Assessment: [47 yo male with 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 Sarcoma C2D2 MAID - tolerating well 2. Anemia - likely treatment related - transfuse 1U PRBCs today, may require one more tomorrow] 3. DM - good glycemic control - cont home oral medications Dispo: anticipate dc home Friday
[2017-07-15] MEDS: OLANzapine TAB* 10 MG PO SCH (11:55)
[2017-07-15] MEDS: Dexamethasone IV* 4 MG/ML 1 ML (4 MG) IV SLOW PU SCH (11:55)
[2017-07-15] MEDS: IFOSFAMIDE IVPB SCH (13:03)
[2017-07-15] MEDS: DACARBAZINE IVPB SCH (13:03)
[2017-07-15] MEDS: DOXORUBICIN IVPB SCH (13:03)
[2017-07-15] MEDS: NS 0.9% IVPB SCH ×2 (13:03)
[2017-07-15] MEDS: MESNA IVPB SCH (13:03)
[2017-07-15] MEDS: glyBURIDE TAB* 5 MG PO SCH (16:16)
[2017-07-15] MEDS: LORazepam INJ* 2 MG/ML 1 ML VIAL IV PUSH PRN (18:46)
[2017-07-16] MEDS: SITAGLIP PO SCH (08:06)
[2017-07-16] MEDS: Enoxaparin(*) 40 MG/0.4 ML SYR SUBCUT SCH (08:06)
[2017-07-16] MEDS: METFORM PO SCH (08:06)
[2017-07-16] MEDS: glyBURIDE TAB* 5 MG PO SCH ×2 (08:06→17:05)
--- NOTE | 2017-07-16 09:46 | PN ---
Progress Note - Progress Note Date of Service: 07/16/17 SOAP: Subjective: feeling slightly queezy this am. has not asked for a PRN antiemetic. otherwise doing well. Objective: Vital Signs Temp Pulse Resp BP Pulse Ox 97.9 F 67 16 113/64 96 07/16/17 07:25 07/16/17 07:25 07/16/17 08:00 07/16/17 07:25 07/16/17 03:26 sitting up with a chew in his mouth perr eomi op as above CTA bl s1 s2 nl soft nt +bs no le edema picc in LUE clean nonfocal neurological exam Laboratory Results - last 24 hr 07/15/17 07/16/17 05:50 08:06 POC Glucose (mg/dL) 97 Blood Type O Positive Antibody Screen Negative Crossmatch See Detail Hydrocodone Bitart/Acetaminophen (Nortab 7.5/325 Liq*) 15 ml PO Q4HR PRN PRN Reason: PAIN Dexamethasone Sodium Phosphate (Decadron Iv*) 12 mg IV SLOW PU DAILY@1230 [facility] Stop: 07/17/17 12:31 Last Admin: 07/15/17 11:55 Dose: 12 mg Enoxaparin Sodium (Lovenox(*)) 40 mg SUBCUT Q24H [facility] Last Admin: 07/16/17 08:06 Dose: 40 mg Glyburide (Diabeta Tab*) 5 mg PO 0800,1700 [facility] Last Admin: 07/16/17 08:06 Dose: 5 mg Heparin Sodium (Porcine) (Heparin Flush Picc/Ml/Cvc(*)) 1 ml FLUSH 0600,1800 JAN[facility] PRN Reason: Protocol Last Admin: 07/16/17 05:52 Dose: 1 ml Ifosfamide 5,250 mg/ Mesna 5, (250 mg/ Sodium Chloride) 1,000 mls @ 41.667 mls/ hr IVPB Q24H [facility] Stop: 07/17/17 12:59 Last Admin: 07/15/17 13:03 Dose: 41.667 mls/hr Doxorubicin HCl 42 mg/Dacarbazine 630 mg/ Sodium Chloride 1,000 mls @ 41.667 mls/hr IVPB Q24H [facility] Stop: 07/17/17 12:59 Last Admin: 07/15/17 13:03 Dose: 41.667 mls/hr Mesna 5,250 mg/ Sodium (Chloride) 1,000 mls @ 41.667 mls/hr IVPB ONCE ONE Stop: 07/18/17 12:59 Palonosetron 0.25 mg/ IV (Solution) 5 mls @ 15 mls/hr IV ONCE ONE Stop: 07/17/17 12:19 Lorazepam (Ativan Inj*) 0.5 mg IV PUSH Q4H PRN PRN Reason: Anxiety/nausea Last Admin: 07/15/17 18:46 Dose: 0.5 mg Olanzapine (Zyprexa Tab*) 10 mg PO DAILY@1230 [facility] Stop: 07/17/17 12:31 Last Admin: 07/15/17 11:55 Dose: 10 mg Polyvinyl Alcohol (Polyvinyl Alcohol 1.4% Opth*) 1 drop BOTH EYES Q2H PRN PRN Reason: DRY EYE Prochlorperazine (Compazine Tab*) 10 mg PO Q6H PRN PRN Reason: NAUSEA Sitagliptin Phosphate/Metformin HCl (Janumet (Nr)) 1 tab PO DAILY [facility] Last Admin: 07/16/17 08:06 Dose: 1 tab Assessment: 47 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 Plan: -encouraged use of antiemetics as ordered -fu cbc today after transfusion yesterday -cont oral diabetes meds full code
[2017-07-16] MEDS: Prochlorperazine TAB* 10 MG PO PRN (09:52)
[2017-07-16 10:17] LABS: ABS Basophils 0 10^3/ul (0-0.2); ABS Eosinophils 0 10^3/ul (0-0.6); ABS Lymphocytes 0.2 10^3/ul (1.0-4.8); ABS Monocytes 0.4 10^3/ul (0-0.8); ABS Neutrophils 5.7 10^3/ul (1.5-7.7); ABS Nucleated RBC 0 10^3/ul; Eosinophil % 0 % (0-6); Hematocrit 24 % (42-52); Hemoglobin 8.3 g/dl (14.0-18.0); Lymphocyte % 3.2 % (25-47); Mean Corpuscular HGB Conc 35 g/dl (31-36); Mean Corpuscular Hemoglobin 32 pg (27-31); Mean Corpuscular Volume 91 fL (80-94); Mean Platelet Volume 6.8 um3 (7.4-10.4); Nucleated Red Blood Cells % 0.1; Platelet Count 329 10^3/ul (150-450); Red Blood Count 2.58 10^6/ul (4.0-5.4); Red Cell Distribution Width 20 % (10.5-15); White Blood Count 6.4 10^3/ul (3.5-10.8)
[2017-07-16 10:39] LABS: EGFR Non-African American 115.7 (>60)
[2017-07-16] MEDS: Dexamethasone IV* 4 MG/ML 1 ML (4 MG) IV SLOW PU SCH (11:34)
[2017-07-16] MEDS: OLANzapine TAB* 10 MG PO SCH (11:34)
[2017-07-16] MEDS: NS 0.9% IVPB SCH ×2 (12:24→12:25)
[2017-07-16] MEDS: MESNA IVPB SCH (12:24)
[2017-07-16] MEDS: IFOSFAMIDE IVPB SCH (12:24)
[2017-07-16] MEDS: DACARBAZINE IVPB SCH (12:25)
[2017-07-16] MEDS: DOXORUBICIN IVPB SCH (12:25)
[2017-07-16] MEDS ORDERED: Potassium Chlor TAB* 20 MEQ TAB.ER PO ONE (14:08)
[2017-07-17] MEDS: glyBURIDE TAB* 5 MG PO SCH ×2 (08:05→16:02)
[2017-07-17] MEDS: Enoxaparin(*) 40 MG/0.4 ML SYR SUBCUT SCH (08:10)
[2017-07-17] MEDS: Prochlorperazine TAB* 10 MG PO PRN ×2 (08:10→13:42)
[2017-07-17 08:48] LABS: ABS Basophils 0 10^3/ul (0-0.2); ABS Eosinophils 0 10^3/ul (0-0.6); ABS Lymphocytes 0.1 10^3/ul (1.0-4.8); ABS Monocytes 0.2 10^3/ul (0-0.8); ABS Neutrophils 4.2 10^3/ul (1.5-7.7); ABS Nucleated RBC 0 10^3/ul; Eosinophil % 0.1 % (0-6); Hematocrit 23 % (42-52); Lymphocyte % 1.7 % (25-47); Mean Corpuscular HGB Conc 35 g/dl (31-36); Mean Corpuscular Hemoglobin 32 pg (27-31); Mean Corpuscular Volume 91 fL (80-94); Mean Platelet Volume 6.4 um3 (7.4-10.4); Nucleated Red Blood Cells % 0.1; Platelet Count 326 10^3/ul (150-450); Red Blood Count 2.53 10^6/ul (4.0-5.4); Red Cell Distribution Width 19 % (10.5-15); White Blood Count 4.6 10^3/ul (3.5-10.8)
--- NOTE | 2017-07-17 09:03 | PN ---
Progress Note - Progress Note Date of Service: 07/17/17 SOAP: Subjective: [Patient feels nauseated yesterday and this am. Able to eat small meals. No vomiting. Diarrhea ~ twice daily. No hematachezia.] Objective: [ Hydrocodone Bitart/Acetaminophen (Nortab 7.5/325 Liq*) 15 ml PO Q4HR PRN PRN Reason: PAIN Dexamethasone Sodium Phosphate (Decadron Iv*) 12 mg IV SLOW PU DAILY@1230 [facility] Stop: 07/17/17 12:31 Last Admin: 07/16/17 11:34 Dose: 12 mg Enoxaparin Sodium (Lovenox(*)) 40 mg SUBCUT Q24H [facility] Last Admin: 07/17/17 08:10 Dose: 40 mg Glyburide (Diabeta Tab*) 5 mg PO 0800,1700 [facility] Heparin Sodium (Porcine) (Heparin Flush Picc/Ml/Cvc(*)) 1 ml FLUSH 0600,1800 [facility]AN[facility] PRN Reason: Protocol Last Admin: 07/17/17 05:51 Dose: 1 ml Ifosfamide 5,250 mg/ Mesna 5, (250 mg/ Sodium Chloride) 1,000 mls @ 41.667 mls/ hr IVPB Q24H [facility] Stop: 07/17/17 12:59 Last Admin: 07/16/17 12:24 Dose: 41.667 mls/hr Doxorubicin HCl 42 mg/Dacarbazine 630 mg/ Sodium Chloride 1,000 mls @ 41.667 mls/hr IVPB Q24H [facility] Stop: 07/17/17 12:59 Last Admin: 07/16/17 12:25 Dose: 41.667 mls/hr Mesna 5,250 mg/ Sodium (Chloride) 1,000 mls @ 41.667 mls/hr IVPB ONCE ONE Stop: 07/18/17 12:59 Palonosetron 0.25 mg/ IV (Solution) 5 mls @ 15 mls/hr IV ONCE ONE Stop: 07/17/17 12:19 Lorazepam (Ativan Inj*) 0.5 mg IV PUSH Q4H PRN PRN Reason: Anxiety/nausea Last Admin: 07/15/17 18:46 Dose: 0.5 mg Olanzapine (Zyprexa Tab*) 10 mg PO DAILY@1230 [facility] Stop: 07/17/17 12:31 Last Admin: 07/16/17 11:34 Dose: 10 mg Polyvinyl Alcohol (Polyvinyl Alcohol 1.4% Opth*) 1 drop BOTH EYES Q2H PRN PRN Reason: DRY EYE Prochlorperazine (Compazine Tab*) 10 mg PO Q6H PRN PRN Reason: NAUSEA Last Admin: 07/17/17 08:10 Dose: 10 mg Sitagliptin Phosphate/Metformin HCl (Janumet (Nr)) 1 tab PO DAILY [facility] Last Admin: 07/16/17 08:06 Dose: 1 tab Laboratory Results - last 24 hr 07/16/17 07/16/17 07/16/17 10:00 10:00 16:35 WBC 6.4 RBC 2.58 L Hgb 8.3 L Hct 24 L MCV 91 MCH 32 H MCHC 35 RDW 20 H Plt Count 329 MPV 6.8 L Neut % (Auto) 89.6 H Lymph % (Auto) 3.2 L [place] % (Auto) 6.9 Eos % (Auto) 0 Baso % (Auto) 0.3 Absolute Neuts (auto) 5.7 Absolute Lymphs (auto) 0.2 L Absolute Monos (auto) 0.4 Absolute Eos (auto) 0 Absolute Basos (auto) 0 Absolute Nucleated RBC 0 Nucleated RBC % 0.1 Sodium 142 Potassium 3.4 L Chloride 109 Carbon Dioxide 26 Anion Gap 7 BUN 17 Creatinine 0.73 Est GFR ( Amer) 148.8 Est GFR (Non-Af Amer) 115.7 BUN/Creatinine Ratio 23.3 H Glucose 114 H POC Glucose (mg/dL) 154 H Calcium 9.3 07/17/17 07/17/17 08:05 08:40 WBC 4.6 RBC 2.53 L Hgb 8.0 L Hct 23 L MCV 91 MCH 32 H MCHC 35 RDW 19 H Plt Count 326 MPV 6.4 L Neut % (Auto) 92.7 H Lymph % (Auto) 1.7 L [place] % (Auto) 5.2 Eos % (Auto) 0.1 Baso % (Auto) 0.3 Absolute Neuts (auto) 4.2 Absolute Lymphs (auto) 0.1 L Absolute Monos (auto) 0.2 Absolute Eos (auto) 0 Absolute Basos (auto) 0 Absolute Nucleated RBC 0 Nucleated RBC % 0.1 Sodium Potassium Chloride Carbon Dioxide Anion Gap BUN Creatinine Est GFR ( Amer) Est GFR (Non-Af Amer) BUN/Creatinine Ratio Glucose POC Glucose (mg/dL) 64 L Calcium Vital Signs: Temp Pulse Resp BP Pulse Ox 98.1 F 74 18 125/69 97 07/17/17 07:50 07/17/17 07:50 07/17/17 08:00 07/17/17 07:50 07/17/17 07:50 Exam: Gen: Ill appearing 47 yo male in NAD HEENT: MMM CV: RRR Resp: CTA Abd: soft, nonTTP, BS present Ext: No edema Skin: No rashes ] Assessment: [[47 yo male with 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 Sarcoma C2D4 MAID - tolerating relatively well, but some increased nausea and diarrhea over the last 2 days - encouraged patient and nursing staff to remain diligent with antiemetics 2. Anemia - likely treatment related - s/p transfusion 1U PRBCs - cont to monitor Hgb] 3. DM - hypoglycemic this am, hold glipizide Dispo: anticipate dc home Friday]
[2017-07-17 09:05] LABS: EGFR Non-African American 121.4 (>60)
[2017-07-17] MEDS: SITAGLIP PO SCH (10:03)
[2017-07-17] MEDS: METFORM PO SCH (10:03)
[2017-07-17] MEDS ORDERED: Palonosetron* 0.25 MG in PREMIX* 0 ML IV ONE (12:00)
[2017-07-17] MEDS ORDERED: Palonosetron* 0.25 MG in PREMIX* 0 ML ONE (12:00)
[2017-07-17] MEDS: OLANzapine TAB* 10 MG PO SCH (12:53)
[2017-07-17] MEDS: Dexamethasone IV* 4 MG/ML 1 ML (4 MG) IV SLOW PU SCH (12:53)
[2017-07-17] MEDS ORDERED: NS 0.9% IVPB ONE (13:00)
[2017-07-17] MEDS ORDERED: MESNA IVPB ONE (13:00)
[2017-07-17] MEDS ORDERED: Loperamide CAP* 2 MG PO PRN (13:44)
[2017-07-17] MEDS: LORazepam INJ* 2 MG/ML 1 ML VIAL IV PUSH PRN (19:39)
[2017-07-18 06:35] LABS: ABS Basophils 0 10^3/ul (0-0.2); ABS Eosinophils 0 10^3/ul (0-0.6); ABS Lymphocytes 0.1 10^3/ul (1.0-4.8); ABS Monocytes 0.1 10^3/ul (0-0.8); ABS Neutrophils 2.4 10^3/ul (1.5-7.7); ABS Nucleated RBC 0 10^3/ul; Eosinophil % 0.5 % (0-6); Hematocrit 23 % (42-52); Hemoglobin 7.9 g/dl (14.0-18.0); Mean Corpuscular HGB Conc 35 g/dl (31-36); Mean Corpuscular Hemoglobin 32 pg (27-31); Mean Corpuscular Volume 91 fL (80-94); Mean Platelet Volume 6.9 um3 (7.4-10.4); Nucleated Red Blood Cells % 0; Platelet Count 303 10^3/ul (150-450); Red Blood Count 2.49 10^6/ul (4.0-5.4); Red Cell Distribution Width 18 % (10.5-15); White Blood Count 2.6 10^3/ul (3.5-10.8)
[2017-07-18] MEDS: Enoxaparin(*) 40 MG/0.4 ML SYR SUBCUT SCH (09:44)
[2017-07-18] MEDS: glyBURIDE TAB* 5 MG PO SCH (09:44)
[2017-07-18] MEDS: SITAGLIP PO SCH (09:45)
[2017-07-18] MEDS: METFORM PO SCH (09:45)
[2017-07-18] MEDS: Prochlorperazine TAB* 10 MG PO PRN (09:53)
[2017-07-18 14:38] VITALS: BP 123/69
--- NOTE | 2017-07-19 01:05 | DS ---
Cc: Dr. Pito Armando * DISCHARGE SUMMARY: DATE OF ADMISSION: 07/14/17 DATE OF DISCHARGE: 07/18/17 PRIMARY CARE PROVIDER: Dr. Pito Armando. PRIMARY MEDICAL ONCOLOGIST AND ATTENDING PHYSICIAN: Elina Dutta MD.* ( DICTATED BY RAPHAEL CARTER) DISCHARGING PROVIDER: RAPHAEL Carter. 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 SECONDARY DISCHARGE DIAGNOSES: 1. Non-insulin dependent diabetes with good glycemic control. 2. Tobacco abuse. DISCHARGE MEDICATIONS: 1. Glyburide 5 mg p.o. with breakfast and dinner. 2. Hydrocodone/acetaminophen 7.5/325 one tablet p.o. q. 4 hours as needed for pain. 3. Lorazepam 0.5 mg p.o. t.i.d. as needed for anxiety or nausea. 4. Zofran 4 mg p.o. q. 6 hours as needed for nausea and vomiting. 5. Compazine 10 mg p.o. q. 6 hours as needed for nausea and vomiting. 6. Janumet extended release one tablet p.o. daily. 7. Neupogen 480 mcg subcu daily starting 07/19/17. HOSPITAL IMAGING: None. 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 The patient was admitted for his 4th cycle. He has tolerated first 3 cycles quite well. This cycle he did develop some additional nausea which was easily managed with IV antiemetics. He was noted to be anemic at the time of admission , likely due to treatment related toxicities and he received a total of 2 units of packed red blood cells during his hospitalization. No neutropenia or thrombocytopenia. Electrolytes unremarkable. DISPOSITION/FOLLOWUP PLAN: The patient is being discharged to home. He received instruction to initiated Neupogen starting tomorrow. He has a followup appointment with oncologic surgeon at [place] for next Friday, the 25 of July. He would also like to pursue a second surgical opinion which will be arranged through the oncology office. The patient will follow up with the medical oncology office and received instructions to call with concern for fever or severe symptoms. MOHAN GATES, RAPHAEL [id number]/[facility] #: [id number] SAHARA
== END 2017-07-18 14:28 | disposition home or self-care (01) | DRG 693 ==
LOC: MED 11:07
PROVIDERS: ADMIT Internal Medicine Hematology & Oncology; ATTEND Internal Medicine Hematology & Oncology
PROC: 30233N1 Transfusion of Nonautologous Red Blood Cells into Peripheral Vein, Percutaneous Approach (ICD-10-PCS; principal; 2017-07-14)
PROC: 02HV33Z Insertion of Infusion Device into Superior Vena Cava, Percutaneous Approach (ICD-10-PCS; 2017-07-14)
PROC: 3E04305 Introduction of Other Antineoplastic into Central Vein, Percutaneous Approach (ICD-10-PCS; 2017-07-14)
DX: Z51.11 Encounter for antineoplastic chemotherapy (principal); C49.3 Malignant neoplasm of connective and soft tissue of thorax; C79.89 Secondary malignant neoplasm of other specified sites; F17.200 Nicotine dependence, unspecified, uncomplicated; R11.0 Nausea; D64.81 Anemia due to antineoplastic chemotherapy; T45.1X5A Adverse effect of antineoplastic and immunosuppressive drugs, initial encounter; E11.40 Type 2 diabetes mellitus with diabetic neuropathy, unspecified; R05 Cough; H53.8 Other visual disturbances; E11.319 Type 2 diabetes mellitus with unspecified diabetic retinopathy without macular edema; E11.65 Type 2 diabetes mellitus with hyperglycemia; M54.9 Dorsalgia, unspecified; G89.29 Other chronic pain; Z87.442 Personal history of urinary calculi; Z88.0 Allergy status to penicillin; Z91.030 Bee allergy status; Z91.013 Allergy to seafood; Z79.84 Long term (current) use of oral hypoglycemic drugs; Z88.8 Allergy status to other drugs, medicaments and biological substances; Z72.89 Other problems related to lifestyle; Z80.1 Family history of malignant neoplasm of trachea, bronchus and lung; Z82.49 Family history of ischemic heart disease and other diseases of the circulatory system; R19.7 Diarrhea, unspecified; E11.649 Type 2 diabetes mellitus with hypoglycemia without coma
CPT/HCPCS: 36415; 80048; 80053; 85025; 86850; 86900; 86901; 86922; 99222; 99232; 99239; A9270-GY; J1100; J1453; J1650; J2060; J2469; J3480; J9000; J9130; J9209; J9280; P9016; P9040; Q0164

== ENCOUNTER 2018-12-17 08:48 | Day surgery (SDC) | payer OTHER ==
[~2018-12-17 08:48] MED LIST changes: -Artificial Tears* 15 ML BTL BOTH EYES PRN; +Buffered Lidocaine 1% SYRIN* 1 ML/SYRINGE INTRADERM ONE; +Famotidine IV* 10 MG/ML 2 ML (20 mg) IV ONE; +NS 0.9% 1000 ML** 1,000 ML IV SCH
[2018-12-17] MEDS ORDERED: fentaNYL* 50 MCG/ML 2 ML VIAL (100 MCG VIAL) ONE ×4 (09:12→15:13)
[2018-12-17] MEDS ORDERED: Propofol* 10 MG/ML 20 ML BTL ONE ×2 (09:12→11:59)
[2018-12-17] MEDS ORDERED: Lidocaine 2% PF * 5 ML VIAL ONE (09:12)
[2018-12-17] MEDS ORDERED: Dexamethasone IV* 4 MG/ML 1 ML (4 MG) ONE (09:12)
[2018-12-17] MEDS ORDERED: Ondansetron INJ* 2 MG/ML VIAL ONE (09:12)
[2018-12-17] MEDS ORDERED: Cisatracurium* 2 MG/ML MDV 5 ML ONE (09:13)
[2018-12-17] MEDS ORDERED: KETAMINE HCL* 50 MG/ML 10 ML VIAL ONE (09:13)
[2018-12-17] MEDS ORDERED: Midazolam* 1 MG/ML 5 ML VIAL (5 MG) ONE (09:13)
[2018-12-17] MEDS ORDERED: Famotidine IV* 10 MG/ML 2 ML (20 mg) ONE (09:22)
[2018-12-17] MEDS ORDERED: Artificial Tear OPHTH.OINT* 3.5 GM ONE (09:46)
[2018-12-17] MEDS ORDERED: Lidocaine 1% INJ* 10 MG/ML 30 ML SDV ONE (09:53)
[2018-12-17] MEDS ORDERED: Bupivacaine 0.25% SDV PF* 10 ML VIAL INJ ONE (09:54)
[2018-12-17] MEDS ORDERED: Dextrose 50% Syringe 50 ML* 25 GM/50 ML SYRINGE ONE (10:35)
[2018-12-17] MEDS ORDERED: Naloxone* 0.4 MG/ML 1 ML VIAL IV PRN (11:56)
[2018-12-17] MEDS ORDERED: DiMENhydriNATE IV* 50 MG/ML VIAL IV PUSH PRN (11:56)
[2018-12-17] MEDS ORDERED: Ondansetron INJ* 2 MG/ML VIAL IV PRN (11:56)
[2018-12-17] MEDS ORDERED: EPHEDrine (Pressors)* 50 MG/ML VIAL ONE (12:00)
--- NOTE | 2018-12-17 13:10 | BRIEFOPN ---
Brief Operative/Procedure Note - Operation Details Pre-Op Diagnosis: primary hyperparathyroidism Post-Op Diagnosis: primary hyperparathyroidism Procedures: right lower parathyroidectomy Surgeon(s)/Proceduralists: Yanci Marie Anesthesia: GETA Findings: large right lower parathyroid gland Specimen(s)/Culture(s) Description: right lower parathyroid gland Complications: none
[2018-12-17] MEDS: fentaNYL* 50 MCG/ML 2 ML VIAL (100 MCG VIAL) IV PRN ×3 (13:44→15:13)
[2018-12-17 19:07] VITALS: BP 140/73
--- NOTE | 2018-12-17 19:59 | OP ---
CC: Dr. Boston Henriquez * DATE OF OPERATION: 12/17/18 - [facility] DATE OF : 72 SERVICE: General Surgery. SURGEON: Yanci Marie MD DORMITORY KEEPER: Elicia Hunt NP ANESTHESIOLOGIST: Dr. Rashel Reed. PRE-OP DIAGNOSIS: Primary hyperparathyroidism. POST-OP DIAGNOSIS: Primary hyperparathyroidism. OPERATIVE PROCEDURE: Right lower parathyroidectomy. ESTIMATED BLOOD LOSS: Minimal, less than 10 cc. SPECIMEN: Right lower parathyroid. INDICATIONS FOR SURGERY: Mr. Ward is a very pleasant 48-year-old gentleman with a history of primary hyperparathyroidism with very elevated calciums. Given his age, as well as the elevated calcium score of greater than 12 and 13, he was determined to be an appropriate candidate for a parathyroidectomy. Preoperative localization studies with a thyroid ultrasound showed that he had a large hypoechoic structure inferior to the right thyroid lobe, which was consistent with a large parathyroid adenoma; therefore, he gave informed consent for a parathyroidectomy. He under-stood the risks included, but were not limited to bleeding, infection, injury to nearby structures including the recurrent laryngeal nerve. He understood these things as well as the benefits and alternatives and he wished to proceed. DESCRIPTION OF PROCEDURE: The patient was brought back to the operating room and placed on the operating table in the supine position. Sequential compression devices were placed on the bilateral lower extremities for DVT prophylaxis. No antibiotics were administered. General endotracheal anesthesia was induced. The electrodes for nerve monitor were attached and then a time out was performed prior to administering local anesthesia into the neck. 0.25% Marcaine plus 1% lidocaine was infiltrated into the anterior neck and the subcutaneous tissue. Approximately 15 cc was used. After this was done , the neck was prepped and draped in normal sterile fashion and then prior to beginning the procedure, a second time-out was performed verifying the patient' s name, MR number, and the procedure to be performed. Next, an approximately 3.5 cm incision was made in the anterior neck approximately 2 fingerbreadths above the sternal notch in a natural crease line. The skin was divided down to the subcutaneous tissue and the platysma was divided. The inferior and superior subplatysmal flaps were developed and then the median raphe between the strap muscles was identified and strap muscles were laterally off of the isthmus of the thyroid. Of note, the patient has had previous radiation to his left shoulder for history of sarcoma and the radiation field did extend towards his left neck. Some of the superficial soft tissue did appear somewhat fibrotic , but otherwise was not very remarkable. After this, attention was turned towards retracting the strap muscles off of the right lobe of the thyroid gland given the preoperative localization studies identified a very large right lower thyroid gland that was located just below the strap muscles and anterior to the carotid artery. This lesion was identified just below the strap muscles. On ultrasound, it also appeared that part of it was somewhat cystic. The parathyroid gland was dissected out off of the strap muscles and during the dissection, the cystic portion did have a small leakage and this was quickly suctioned out. The pedicle of the right lower parathyroid gland was then isolated and divided and the parathyroid was removed. Then the sequential parathyroid levels were obtained. A baseline had been drawn in the recovery room and then a time 0 was drawn when the pedicle was taken and time 5 and time 10 were then subsequently taken. The results showed that the baseline was 297.1 , time 0 was 77, time 5 was 55, and time 10 was 45.2. This clearly met [place] criterion; therefore, attention was turned towards closing. Hemostasis was obtained in the right lateral neck. Sterile water was used to irrigate the neck as well given that there was slight spillage of cystic fluid. After hemostasis satisfactorily obtained, Tisseel was placed in the right lateral neck and then the strap muscles were reapproximated using interrupted 4-0 Vicryl sutures. The platysma was reapproximated using 4-0 Vicryl sutures. The skin was closed using a running 5-0 Prolene suture and sterile dressing was placed. The patient 's anesthesia was reversed and he was taken to the PACU in stable condition. At the end of the case, all counts were correct and I was present during the entirety of the case. [id number]/[facility] #: [id number] SAHARA
== END 2018-12-17 19:32 | disposition home or self-care (01) ==
LOC: OR 08:48
PROVIDERS: ATTEND Surgery
DX: E21.0 Primary hyperparathyroidism (principal); E11.9 Type 2 diabetes mellitus without complications; G62.9 Polyneuropathy, unspecified; I10 Essential (primary) hypertension; Z88.0 Allergy status to penicillin; Z88.5 Allergy status to narcotic agent; Z91.030 Bee allergy status; Z87.891 Personal history of nicotine dependence
CPT/HCPCS: 36415; 82947; 83970; 88305; C1776; J1100; J2250; J2405; J2704; J3010; J3490